=== PATIENT | male | born 1990 | race Caucasian/White ===

== ENCOUNTER 2022-12-23 23:02 | Emergency (ER) | payer OTHER ==
[2022-12-23 23:21] VITALS: BP 133/89; PULSE 89; RESP 17; TEMP 98.8; BMI 22.4
[2022-12-23] MEDS ORDERED: FLUORESCEIN NA 1 EA STRIP OD ONE (23:57)
[2022-12-23] MEDS ORDERED: FLUORESCEIN NA 1 EA STRIP ONE (23:57)
== END 2022-12-24 00:10 | disposition home or self-care (01) ==
LOC: JERFT 23:02 → JER 23:02 → JERFT 12-24 00:10
DX: H10.33 Unspecified acute conjunctivitis, bilateral (principal)
CPT/HCPCS: 99283-25

== ENCOUNTER 2022-12-27 10:31 | Emergency (ER) | payer OTHER ==
[2022-12-27 10:34] VITALS: BP 121/80; PULSE 74; RESP 18; TEMP 98.3; BMI 23.4
== END 2022-12-27 12:39 | disposition home or self-care (01) ==
LOC: JER 10:31
DX: K64.9 Unspecified hemorrhoids (principal)
CPT/HCPCS: 99281-25

== ENCOUNTER 2023-12-25 13:42 | Emergency (ER) | payer OTHER ==
[2023-12-25 13:51] VITALS: BP 128/74; PULSE 84; RESP 18; TEMP 98; BMI 24.5
[2023-12-25] MEDS ORDERED: IBUPROFEN 600 MG TABLET (FP) PO ONE ×2 (14:07→14:11)
[2023-12-25] MEDS ORDERED: ACETAMINOPHEN 325 MG TABLET (FP) PO ONE (16:19)
== END 2023-12-25 16:26 | disposition home or self-care (01) ==
LOC: JERFT 13:42
DX: M25.552 Pain in left hip (principal)
CPT/HCPCS: 73502-TC-LT-FY; 73562-TC-LT-FY; 99283-25

== ENCOUNTER 2024-02-11 11:04 | Emergency (ER) | payer OTHER ==
[2024-02-11 11:18] VITALS: BP 115/75; PULSE 66; RESP 18; TEMP 98.9; BMI 24.3
[2024-02-11 13:22] LABS: BASO % 0.6 % (0-2.0); EOS % 0.6 % (0-4.5); HEMATOCRIT 43.6 % (35.4-49); HEMOGLOBIN 14.4 GM/dL (11.7-16.9); LYMPH % 26.5 % (8-40); MEAN CELL VOLUME 81.9 fl (80-96); MEAN PLT VOLUME 6.7 fl (7.5-11.1); MONO % 7.7 % (3.8-10.2); NEUT % 64.6 % (42.8-82.8); PLATELET COUNT 284 10^3/uL (134-434); RBC 5.32 M/mm3 (4.00-5.60); RDW 13.7 % (11.9-15.9); WHITE BLOOD COUNT 8.1 K/mm3 (4.0-10.0)
[2024-02-11 13:44] LABS: CHLORIDE 107 mmol/L (98-107); POTASSIUM 4.5 mmol/L (3.5-5.1); SODIUM 138 mmol/L (136-145)
[2024-02-11 13:45] LABS: CALCIUM 9.6 mg/dL (8.5-10.1)
[2024-02-11 13:46] LABS: ALBUMIN 4.3 g/dl (3.4-5.0); ANION GAP 6 mmol/L (4-13); BLOOD UREA NITROGEN 17.2 mg/dL (7-18); CO2 25 mmol/L (21-32); GLUCOSE,RANDOM 87 mg/dL (74-106)
[2024-02-11 13:49] LABS: CREATININE 0.8 mg/dL (0.55-1.3); SGOT/AST 19 U/L (15-37); SGPT/ALT 15 U/L (13-61)
[2024-02-11 13:50] LABS: BILIRUBIN,TOTAL 0.4 mg/dL (0.2-1); TOT PROT 7.8 g/dl (6.4-8.2)
[2024-02-11 13:52] LABS: ALK PHOS 65 U/L (45-117)
== END 2024-02-11 14:07 | disposition home or self-care (01) ==
LOC: JERFT 11:04
DX: L65.9 Nonscarring hair loss, unspecified (principal)
CPT/HCPCS: 36415; 80053; 84439; 84443; 85025; 85651; 86038; 86140; 86780; 99283-25